=== PATIENT | male | born 1980 | race Caucasian/White ===

== ENCOUNTER 2021-10-19 07:05 | Inpatient (IN) | payer MEDICAID ==
[2021-10-19] VITALS (18 sets, daily range): BP systolic 90–190; BP diastolic 47–102
[~2021-10-19] VITALS: Ht 182.9 cm; Wt 88.3 kg
[~2021-10-19 07:05] MED LIST: INSU100V36 SQ; NPH,100V SQ
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
[2021-10-19] MEDS ORDERED: levetiracetam inj 1,000 MG in normal saline 100ml IV soln 90 ML IV ONE ×2 (07:20→07:30)
[2021-10-19] MEDS ORDERED: normal saline 1000ml 1,000 ML IV ONE ×2 (07:20→14:00)
[2021-10-19] MEDS ORDERED: LORazepam 2 mg/ml vial IV ONE ×3 (07:25→09:05)
[2021-10-19] MEDS ORDERED: Levetiracetam-NS 500mg/100ml 100 ML IV ONE ×5 (07:35→09:15)
[2021-10-19] MEDS ORDERED: LEVETIRACETAM NS 500 MG/100 ML IV ONE ×4 (07:40→09:15)
[2021-10-19 08:28] LABS: BASOPHILS # (AUTO) 0.1 X10'3 (0-0.2); BASOPHILS % (AUTO) 0.4 % (0-1); EOSINOPHILS % (AUTO) 0 % (0-6); HEMATOCRIT 45.2 % (42.0-52.0); HEMOGLOBIN 14.2 g/dl (14.0-17.9); LYMPHOCYTES # (AUTO) 0.6 X10'3 (1.1-4.8); LYMPHOCYTES % (AUTO) 3.5 % (21-51); MEAN CORPUSCULAR HEMOGLOBIN 27.9 PG (27.0-31.0); MEAN CORPUSCULAR HGB CONC 31.4 g/dL (33.0-36.5); MEAN PLATELET VOLUME 9.1 FL (7.4-10.4); MONOCYTES # (AUTO) 0.6 X10'3 (0-0.9); MONOCYTES % (AUTO) 3.2 % (2-12); NEUTROPHILS # (AUTO) 16.7 X10'3 (1.8-7.7); NEUTROPHILS % (AUTO) 92.9 % (42-75); PLATELET COUNT 369 X10'3 (140-440); RED BLOOD COUNT 5.08 X10'6 (4.70-6.10); RED CELL DISTRIBUTION WIDTH 14.4 % (11.5-14.5)
[2021-10-19 08:45] LABS: ALANINE AMINOTRANSFERASE 29 U/L (12-78); ALBUMIN 2.4 G/DL (3.4-5.0); ALBUMIN/GLOBULIN RATIO 0.6 (1.1-1.5); ALKALINE PHOSPHATASE 140 IU/L (46-116); ANION GAP 16 (8-16); ASPARTATE AMINO TRANSFERASE 21 U/L (10-37); BILIRUBIN,TOTAL 0.3 MG/DL (0.1-1.0); BLOOD UREA NITROGEN 42 MG/DL (7-18); BUN/CREATININE RATIO 14.3 (5.4-32.0); CALCIUM 8.7 MG/DL (8.5-10.1); CHLORIDE 97 MMOL/L (99-107); CREATININE 2.94 MG/DL (0.60-1.10); POTASSIUM 4.6 MMOL/L (3.5-5.1); SODIUM 132 MMOL/L (135-145); TOTAL CARBON DIOXIDE 19.4 MMOL/L (24-32); TOTAL PROTEIN 6.4 G/DL (6.4-8.2); eGFR 24 ML/MIN
[2021-10-19 08:50] LABS: CREATINE KINASE 370 U/L (39-308); ETHANOL < 0.010 GM/DL (0.0-0.010); MAGNESIUM 2.9 MG/DL (1.5-2.4)
[2021-10-19] MEDS ORDERED: LORazepam 2 mg/ml vial ONE (08:55)
[2021-10-19 09:03] LABS: GLUCOSE 1028 MG/DL (70-104)
[2021-10-19] MEDS ORDERED: LIDOcaine 2% 10ml TOPICAL JELLY (Urojet) TP ONE (09:25)
[2021-10-19] MEDS ORDERED: rocuronium 10mg/ml inj IV ONE ×2 (09:25→12:00)
[2021-10-19 09:30] LABS: CLARITY,URINE CLEAR (Clear); GLUCOSE, URINE >=1000 mg/dl (Neg); KETONES,URINE TRACE mg/dl (Neg); LEUKOCYTE ESTERASE ,URINE NEGATIVE (Neg); NITRITES, URINE NEGATIVE (Neg); OCCULT BLOOD,URINE SMALL (Neg); PH,URINE 5.5 (4.8-8.0); PROTEIN,URINE 100 mg/dl (Neg); URINE AMPHETAMINE SCREEN POSITIVE (Neg); URINE BARBITUATE SCREEN NEGATIVE (Neg); URINE BENZODIAZEPINES SCREEN NEGATIVE (Neg); URINE CANNABINOID SCREEN NEGATIVE (Neg); URINE COCAINE SCREEN NEGATIVE (Neg); URINE METHADONE SCREEN NEGATIVE (Neg); URINE OPIATE SCREEN NEGATIVE (Neg); URINE PHENCYCLIDINE SCREEN NEGATIVE (Neg); UROBILINOGEN,URINE 0.2 E.U/dL (0.2-1.0)
[2021-10-19] MEDS ORDERED: acetaminophen 325mg tablet PO PRN (09:30)
[2021-10-19] MEDS ORDERED: MIDAZolam inj 50 MG in normal saline 50ml IV soln 40 ML IV SCH (09:30)
[2021-10-19] MEDS ORDERED: insulin regular, human U-100 3ml vial - multi-dose IV PRN (09:30)
[2021-10-19] MEDS ORDERED: sodium bicarbonate (8.4%) inj. 100 MEQ in dextrose 5% water 500ml 500 ML IV PRN (09:30)
[2021-10-19] MEDS ORDERED: magnesium hydroxide 30ml (MOM) UD suspension PO PRN (09:30)
[2021-10-19] MEDS ORDERED: potassium CL 20mEq in D5-1/2NS 1,000 ML IV PRN (09:30)
[2021-10-19] MEDS ORDERED: sodium bicarbonate (8.4%) inj. 50 MEQ in dextrose 5% water 500ml 250 ML IV PRN (09:30)
[2021-10-19] MEDS ORDERED: normal saline 1000ml 1,000 ML IV SCH (09:30)
[2021-10-19] MEDS ORDERED: Neutra Phos packet PO PRN (09:30)
[2021-10-19] MEDS ORDERED: Insulin Reg/NS 100units/100mL 100 ML IV SCH ×2 (09:30)
[2021-10-19] MEDS: normal saline 1000ml 1,000 ML IV SCH ×4 (09:30→19:30)
[2021-10-19] MEDS ORDERED: sodium phosphate inj. 15 MMOL in dextrose 5%-water 250 ML IV PRN (09:30)
[2021-10-19] MEDS ORDERED: morphine 4 MG/ML inj SYRINge IV PRN (09:30)
[2021-10-19] MEDS ORDERED: POTASSIUM BICARB 20meq eff tab 20 MEQ TABLET.EFF PO PRN ×2 (09:30)
[2021-10-19] MEDS ORDERED: sodium phosphate inj. 30 MMOL in dextrose 5%-water 250 ML IV PRN (09:30)
[2021-10-19] MEDS ORDERED: potassium Cl 40MEQ/1/2NS 520ml 520 ML IV PRN ×2 (09:30)
[2021-10-19] MEDS ORDERED: potassium Cl 20 mEq SR tablet PO PRN ×2 (09:30)
[2021-10-19] MEDS ORDERED: morphine 2 MG/ML inj. syringe IV PRN (09:30)
[2021-10-19 09:33] LABS: COLOR,URINE STRAW (Yellow); UA COLLECTION TYPE NON-SPECIFIED
[2021-10-19 09:39] LABS: BACTERIA,URINE NONE SEEN /HPF (Neg); MUCUS STRANDS NONE SEEN /LPF (Neg); RBC,URINE 0-2 /HPF (0-2); SQUAMOUS EPITHELIAL CELL,UR FEW /LPF (FEW); WBC,URINE 0-4 /HPF (0-4)
[2021-10-19 09:40] LABS: SPERM FEW /HPF (NEGATIVE)
[2021-10-19] MEDS ORDERED: sodium bicarbonate (8.4%) inj. 50 MEQ in dextrose 5% water 500ml 1,000 ML IV PRN ×2 (09:53→09:55)
[2021-10-19] MEDS ORDERED: SODIUM BICARBONATE IV PRN (09:54)
[2021-10-19] MEDS ORDERED: DEXTROSE 5% IV PRN (09:54)
[2021-10-19] MEDS ORDERED: WATER IV PRN (09:54)
[2021-10-19] MEDS ORDERED: midazolam 100mg in NS 100ml 50 ML IV SCH (10:07)
[2021-10-19 10:14] LABS: ABG HCO3 21.8 mmol/L (22.0-26.0); ABG OXYGEN SATURATION 96.5 % (94-97); ABG PCO2 (T) 56.8 mmHg (35.0-48.0); ABG PO2 (T) 95.1 mmHg (75.0-100.0); ALLEN'S TEST POSITIVE; FCOHb 0.8 % (0.0-3.9); FMetHb 0.2 % (0.0-1.5); FO2Hb 95.5 % (94-97); PEEP 5 cm H2O; RESPIRATORY RATE 14 b/min; TIDAL VOLUME 500 mL; TOTAL HEMOGLOBIN 15.4 G/dl (14.0-18.0)
[2021-10-19 10:37] LABS: ALBUMIN 2.5 G/DL (3.4-5.0); ANION GAP 13 (8-16); BLOOD UREA NITROGEN 44 MG/DL (7-18); BUN/CREATININE RATIO 16.5 (5.4-32.0); CALCIUM 8.8 MG/DL (8.5-10.1); CHLORIDE 98 MMOL/L (99-107); CREATININE 2.66 MG/DL (0.60-1.10); POTASSIUM 5.5 MMOL/L (3.5-5.1); SODIUM 132 MMOL/L (135-145); eGFR 27 ML/MIN
[2021-10-19 10:53] LABS: GLUCOSE 889 MG/DL (70-104)
--- NOTE | 2021-10-19 10:53 | NUR ---
Pts aunt Janene Andreas called and left emergency contact #:
--- NOTE | 2021-10-19 11:05 | NUR ---
RECEIVED VO TO GIVE 50MG ROCURONIUM IV X [address] HEATH WHOM IS AT BEDSIDE ESTABLISHING CENTRAL LINE. 50MG GIVEN.
--- NOTE | 2021-10-19 11:25 | NUR ---
C-XRAY REVIEWED BY DR. HEATH AND CONFIRMED CENTRAL LINE PLACEMENT.
--- NOTE | 2021-10-19 11:57 | NUR ---
Report given to VENKAT Grant, pt to go to room 2013 when Covid result gets back. If result + pt will be reassigned different room.
[2021-10-19] MEDS ORDERED: LANTUS SQ (12:05)
[2021-10-19] MEDS ORDERED: BLOO-1084 (12:05)
[2021-10-19] MEDS ORDERED: AMLO10TA13 PO (12:05)
[2021-10-19] MEDS ORDERED: FOLI1TAB27 PO (12:05)
[2021-10-19] MEDS ORDERED: LANC-509 (12:05)
[2021-10-19] MEDS ORDERED: NEED-136 (12:05)
[2021-10-19 13:28] LABS: ALBUMIN 2.1 G/DL (3.4-5.0); ANION GAP 9 (8-16); BLOOD UREA NITROGEN 44 MG/DL (7-18); BUN/CREATININE RATIO 17.1 (5.4-32.0); CALCIUM 8.1 MG/DL (8.5-10.1); CHLORIDE 106 MMOL/L (99-107); CREATININE 2.57 MG/DL (0.60-1.10); POTASSIUM 4.2 MMOL/L (3.5-5.1); SODIUM 138 MMOL/L (135-145); TOTAL CARBON DIOXIDE 23.1 MMOL/L (24-32); eGFR 28 ML/MIN
[2021-10-19 13:29] LABS: GLUCOSE 649 MG/DL (70-104)
--- NOTE | 2021-10-19 14:00 | NUR ---
Pt. to 2013 from ED via [facility] after receiving report from Poppy ROBLEDO. BMP sent to lab STAT upon arrival. RN called Dr. Flores with glucose and IV fluid status. RN asked what Dr. Rutherford wanted in regards to increasing Insulin gtt rate, IV fluids etc. Order received to give 1L NS bolus and obtain glucose level after that and to keep Insulin rate at 3units per hour for now. Pt's aunt (by marriage) Janene, was at bedside to provide background info. re. pt. to RN. 2 RN skin check and MRSA swab done. Admission charting complete. CVL tranduced. VSS.
[2021-10-19] MEDS: midazolam 100mg in NS 100ml 100 ML IV SCH ×2 (14:12→17:05)
[2021-10-19] MEDS: K and/or MAG REPLACEMENT MC SCH (19:21)
[2021-10-19] MEDS: acetaminophen 325mg tablet PO PRN (19:53)
[2021-10-19] MEDS ORDERED: LEVETIRACETAM NS 500 MG/100 ML IV SCH (20:00)
[2021-10-19 20:41] LABS: BASOPHILS # (AUTO) 0.1 X10'3 (0-0.2); BASOPHILS % (AUTO) 0.7 % (0-1); EOSINOPHILS % (AUTO) 0 % (0-6); HEMATOCRIT 38.2 % (42.0-52.0); HEMOGLOBIN 12.8 g/dl (14.0-17.9); LYMPHOCYTES # (AUTO) 1.6 X10'3 (1.1-4.8); LYMPHOCYTES % (AUTO) 8.7 % (21-51); MEAN CORPUSCULAR HEMOGLOBIN 28.3 PG (27.0-31.0); MEAN CORPUSCULAR HGB CONC 33.5 g/dL (33.0-36.5); MEAN CORPUSCULAR VOLUME 84.4 FL (78-98); MEAN PLATELET VOLUME 8.4 FL (7.4-10.4); MONOCYTES # (AUTO) 1.2 X10'3 (0-0.9); MONOCYTES % (AUTO) 6.7 % (2-12); NEUTROPHILS # (AUTO) 14.9 X10'3 (1.8-7.7); NEUTROPHILS % (AUTO) 83.9 % (42-75); PLATELET COUNT 342 X10'3 (140-440); RED BLOOD COUNT 4.53 X10'6 (4.70-6.10); RED CELL DISTRIBUTION WIDTH 14.2 % (11.5-14.5); WHITE BLOOD COUNT 17.7 X10'3 (4.5-11.0)
[2021-10-19 20:59] LABS: ALANINE AMINOTRANSFERASE 24 U/L (12-78); ALBUMIN 1.9 G/DL (3.4-5.0); ALBUMIN/GLOBULIN RATIO 0.6 (1.1-1.5); ALKALINE PHOSPHATASE 103 IU/L (46-116); ANION GAP 9 (8-16); ASPARTATE AMINO TRANSFERASE 14 U/L (10-37); BILIRUBIN,TOTAL 0.3 MG/DL (0.1-1.0); BLOOD UREA NITROGEN 47 MG/DL (7-18); BUN/CREATININE RATIO 16.8 (5.4-32.0); CALCIUM 8.2 MG/DL (8.5-10.1); CHLORIDE 115 MMOL/L (99-107); CREATININE 2.79 MG/DL (0.60-1.10); GLUCOSE 101 MG/DL (70-104); MAGNESIUM 2.7 MG/DL (1.5-2.4); PHOSPHORUS 3.9 MG/DL (2.3-4.5); POTASSIUM 3.6 MMOL/L (3.5-5.1); SODIUM 148 MMOL/L (135-145); TOTAL CARBON DIOXIDE 24.1 MMOL/L (24-32); TOTAL PROTEIN 5.3 G/DL (6.4-8.2); eGFR 25 ML/MIN
[2021-10-19] MEDS ORDERED: ringers solution, lacted 1,000 ML IV SCH (21:20)
[2021-10-20] VITALS (34 sets, daily range): BP systolic 80–182; BP diastolic 44–102
[2021-10-20 03:24] LABS: ABG BASE EXCESS -3.3 mmol/L (-2.0-2.0); ABG HCO3 21.3 mmol/L (22.0-26.0); ABG OXYGEN SATURATION 96.2 % (94-97); ABG PCO2 (T) 37.7 mmHg (35.0-48.0); ALLEN'S TEST Modified; FCOHb 0.3 % (0.0-3.9); FMetHb 0.1 % (0.0-1.5); FO2Hb 95.8 % (94-97); PATIENT TEMPERATURE 37.4; PEEP 5 cm H2O; RESPIRATORY RATE 18 b/min; TIDAL VOLUME 500 mL; TOTAL HEMOGLOBIN 13.6 G/dl (14.0-18.0)
[2021-10-20 03:27] LABS: ALBUMIN 1.9 G/DL (3.4-5.0); ANION GAP 13 (8-16); BLOOD UREA NITROGEN 48 MG/DL (7-18); BUN/CREATININE RATIO 15.9 (5.4-32.0); CALCIUM 8.5 MG/DL (8.5-10.1); CHLORIDE 111 MMOL/L (99-107); CREATININE 3.01 MG/DL (0.60-1.10); GLUCOSE 100 MG/DL (70-104); MAGNESIUM 2.6 MG/DL (1.5-2.4); PHOSPHORUS 3.9 MG/DL (2.3-4.5); POTASSIUM 3.4 MMOL/L (3.5-5.1); SODIUM 145 MMOL/L (135-145); TOTAL CARBON DIOXIDE 21.4 MMOL/L (24-32); eGFR 23 ML/MIN
[2021-10-20 03:34] LABS: BASOPHILS # (AUTO) 0.1 X10'3 (0-0.2); BASOPHILS % (AUTO) 0.6 % (0-1); EOSINOPHILS % (AUTO) 0 % (0-6); HEMATOCRIT 38.9 % (42.0-52.0); HEMOGLOBIN 12.9 g/dl (14.0-17.9); LYMPHOCYTES # (AUTO) 1.4 X10'3 (1.1-4.8); MEAN CORPUSCULAR HEMOGLOBIN 27.9 PG (27.0-31.0); MEAN CORPUSCULAR HGB CONC 33.3 g/dL (33.0-36.5); MEAN CORPUSCULAR VOLUME 83.8 FL (78-98); MEAN PLATELET VOLUME 9.4 FL (7.4-10.4); MONOCYTES # (AUTO) 1.4 X10'3 (0-0.9); MONOCYTES % (AUTO) 7.4 % (2-12); NEUTROPHILS # (AUTO) 16.5 X10'3 (1.8-7.7); PLATELET COUNT 309 X10'3 (140-440); RED BLOOD COUNT 4.64 X10'6 (4.70-6.10); RED CELL DISTRIBUTION WIDTH 14.6 % (11.5-14.5); WHITE BLOOD COUNT 19.4 X10'3 (4.5-11.0)
[2021-10-20] MEDS: midazolam 100mg in NS 100ml 100 ML IV SCH ×2 (04:38→20:01)
--- NOTE | 2021-10-20 04:40 | NUR ---
RN Note -MD Communication Dr. Alcantara rounded on pt via tele P[employer]ur. Orders received.
[2021-10-20] MEDS ORDERED: dexmedetomidin/NS 400mcg/100ml 100 ML IV PRN (04:55)
[2021-10-20] MEDS ORDERED: dextrose 50%-water 50ml dispensing syringe IV PRN ×2 (04:55)
[2021-10-20] MEDS ORDERED: MESSAGE TO PHARMACY PO ONE (04:55)
[2021-10-20] MEDS ORDERED: glucagon, human recombinant 1mg kit SUBCUT PRN (04:55)
[2021-10-20] MEDS ORDERED: insulin Lispro (HumaLOG) vial - multi-dose SQ SCH (04:55)
[2021-10-20] MEDS ORDERED: DEXTROSE 15 GM of carb/4 tabs (each vial/BOTTLE has 4 tablets) PO PRN ×2 (04:55)
[2021-10-20] MEDS ORDERED: potassium Cl 10 mEq/100mL bag IV ONE (05:00)
[2021-10-20] MEDS ORDERED: potassium Cl 20mEq/100mL bag 100 ML IV ONE (05:00)
[2021-10-20] MEDS: propofol 1000mg/100ml bottle 100 ML IV SCH (05:54)
[2021-10-20] MEDS: dexmedetomidin/NS 400mcg/100ml 100 ML IV PRN ×2 (05:56→14:55)
[2021-10-20] MEDS: folic acid 1mg tablet PO SCH (07:33)
[2021-10-20] MEDS: amLODIPine 5mg tablet PO SCH (08:00)
[2021-10-20] MEDS: K and/or MAG REPLACEMENT MC SCH ×2 (08:00→20:00)
[2021-10-20] MEDS ORDERED: K and/or MAG REPLACEMENT MC SCH (08:00)
[2021-10-20] MEDS: insulin glargine (Lantus) pen - multi-dose SQ SCH ×2 (08:40→20:08)
[2021-10-20] MEDS ORDERED: normal saline 1000ml 1,000 ML IV ONE (08:45)
[2021-10-20] MEDS: levetiracetam-NS 1000mg/100ml 100 ML IV SCH ×2 (09:40→20:00)
[2021-10-20] MEDS: insulin regular, human U-100 3ml vial - multi-dose SQ SCH ×2 (10:56→14:26)
--- NOTE | 2021-10-20 11:28 | NUR ---
Initial: Pt intubated admit DX status epilepticus, possible aspiration, and HHNK hx T1DM Glu 1028mg/dl on admit per cryptologist at rounds/EMR. Pt has humilin 35 units AM, Lantus 20 units BID, and humalog sliding scale home DM meds though living in car and positive for meth per critical care rounds. A1C pending this admit. Pt off insulin drip on glycemic protocol w/ Glu 222mg/dl this AM. MAP 77 w/ OG in place; TF recs below in case prolonged intubation. Propofol visualized at 9.992ml/hr during rounds though to be turned off for hopeful extubation today per cryptologist. Will monitor for further nutrition intervention needs this admit. Rec: 1. IF TF; Vital AF at 80ml/hr goal 2. IF TF; additional water flush 200ml Q4H 3. upon extubation; advance diet as medically indicated per STONE CHIMNEY MASON/MD recs to carb controlled 4. routine bowel care 5. daily wts 6. monitor for A1C results Addendum: 10/20/21 at [address] Amended: Links added.
[2021-10-20] MEDS: pantoprazole 40MG/NS 100ML BAG 100 ML IV SCH (11:53)
[2021-10-20] MEDS: piperacillin/tazobactam inj. 3.375 GM in NS 50ml IV SCH (12:36)
[2021-10-20] MEDS: acetaminophen 325mg tablet PO PRN (13:30)
[2021-10-20] MEDS: heparin, porcine 5000 units/ml vial SQ SCH ×2 (13:35→20:01)
--- NOTE | 2021-10-20 17:46 | NUR ---
Dr Cuevas updated with temp and vital signs, fluid bolus in progress, precedex off
--- NOTE | 2021-10-20 18:30 | NUR ---
Patient in room CICU 2013. I have received report from VENKAT Menard and had the opportunity to ask questions and assume patient care.
--- NOTE | 2021-10-20 18:35 | NUR ---
significant other and sampler and test preparer at bedside.
[2021-10-20] MEDS: normal saline 1000ml 1,000 ML IV SCH (20:13)
[2021-10-20] MEDS ORDERED: insulin glargine (Lantus) pen - multi-dose SQ SCH (21:00)
[2021-10-21] VITALS (34 sets, daily range): BP systolic 106–166; BP diastolic 62–94
[2021-10-21] MEDS: piperacillin/tazobactam inj. 3.375 GM in NS 50ml IV SCH ×3 (00:11→16:10)
[2021-10-21] MEDS: propofol 1000mg/100ml bottle 100 ML IV SCH ×4 (00:52→22:35)
[2021-10-21] MEDS: normal saline 1000ml 1,000 ML IV SCH ×2 (01:15→09:15)
[2021-10-21 02:25] LABS: BASOPHILS # (AUTO) 0.1 X10'3 (0-0.2); BASOPHILS % (AUTO) 0.8 % (0-1); EOSINOPHILS # (AUTO) 0.2 X10'3 (0-0.9); EOSINOPHILS % (AUTO) 1.1 % (0-6); HEMATOCRIT 39.4 % (42.0-52.0); HEMOGLOBIN 13.1 g/dl (14.0-17.9); LYMPHOCYTES # (AUTO) 1.7 X10'3 (1.1-4.8); LYMPHOCYTES % (AUTO) 11.8 % (21-51); MEAN CORPUSCULAR HEMOGLOBIN 28.7 PG (27.0-31.0); MEAN CORPUSCULAR HGB CONC 33.3 g/dL (33.0-36.5); MEAN PLATELET VOLUME 8.7 FL (7.4-10.4); MONOCYTES # (AUTO) 0.9 X10'3 (0-0.9); MONOCYTES % (AUTO) 6.3 % (2-12); NEUTROPHILS # (AUTO) 11.6 X10'3 (1.8-7.7); PLATELET COUNT 278 X10'3 (140-440); RED BLOOD COUNT 4.58 X10'6 (4.70-6.10); WHITE BLOOD COUNT 14.5 X10'3 (4.5-11.0)
[2021-10-21 02:35] LABS: APTT 31 SECONDS (22-32)
[2021-10-21 02:39] LABS: ALBUMIN 1.7 G/DL (3.4-5.0); ANION GAP 7 (8-16); BLOOD UREA NITROGEN 47 MG/DL (7-18); BUN/CREATININE RATIO 16.6 (5.4-32.0); CALCIUM 8.4 MG/DL (8.5-10.1); CHLORIDE 114 MMOL/L (99-107); CREATININE 2.83 MG/DL (0.60-1.10); GLUCOSE 85 MG/DL (70-104); MAGNESIUM 2.1 MG/DL (1.5-2.4); PHOSPHORUS 3.7 MG/DL (2.3-4.5); POTASSIUM 3.5 MMOL/L (3.5-5.1); SODIUM 144 MMOL/L (135-145); TOTAL CARBON DIOXIDE 22.9 MMOL/L (24-32); TRIGLYCERIDES 98 MG/DL (20-135); eGFR 25 ML/MIN
[2021-10-21 03:41] LABS: ABG BASE EXCESS -3.6 mmol/L (-2.0-2.0); ABG HCO3 19.9 mmol/L (22.0-26.0); ABG OXYGEN SATURATION 97.4 % (94-97); ABG PCO2 (T) 32.5 mmHg (35.0-48.0); ABG PO2 (T) 96.9 mmHg (75.0-100.0); ALLEN'S TEST Modified; FCOHb 0.2 % (0.0-3.9); FMetHb 0.2 % (0.0-1.5); PATIENT TEMPERATURE 37.5; PEEP 5 cm H2O; RESPIRATORY RATE 18 b/min; TIDAL VOLUME 500 mL; TOTAL HEMOGLOBIN 13.9 G/dl (14.0-18.0)
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
[2021-10-21] MEDS: midazolam 100mg in NS 100ml 100 ML IV SCH (06:01)
--- NOTE | 2021-10-21 06:20 | NUR ---
Problems reprioritized. Patient report given, questions answered & plan of care reviewed with VENKAT Grant.
[2021-10-21] MEDS: dextrose 5%-normal saline 1,000 ML IV SCH ×3 (06:59→19:53)
--- NOTE | 2021-10-21 07:05 | NUR ---
Patient in room [facility] 2013. I have received report from Silva ROBLEDO and had the opportunity to ask questions and assume patient care. Addendum: 10/21/21 at 0705 by Juanita Fowler RN Amended: Links added.
[2021-10-21] MEDS: pantoprazole 40MG/NS 100ML BAG 100 ML IV SCH (07:06)
[2021-10-21] MEDS: folic acid 1mg tablet PO SCH (07:08)
[2021-10-21] MEDS: amLODIPine 5mg tablet PO SCH (07:08)
[2021-10-21] MEDS: K and/or MAG REPLACEMENT MC SCH ×2 (07:08→19:12)
[2021-10-21] MEDS: heparin, porcine 5000 units/ml vial SQ SCH ×2 (07:09→19:27)
[2021-10-21] MEDS: dextrose 50%-water 50ml dispensing syringe IV PRN ×2 (07:35→13:33)
[2021-10-21] MEDS: levetiracetam inj 1,000 MG in normal saline 100ml IV soln 100 ML IV SCH ×2 (07:40→19:27)
[2021-10-21] MEDS: insulin glargine (Lantus) pen - multi-dose SQ SCH ×2 (07:48→19:32)
[2021-10-21] MEDS ORDERED: levetiracetam inj 1,000 MG in normal saline 100ml IV soln 90 ML IV SCH (08:00)
--- NOTE | 2021-10-21 10:06 | NUR ---
EEG being set up.
--- NOTE | 2021-10-21 10:21 | NUR ---
ROUNDS NOTE: Dr. Rutherford aware of BG of 67 this am and multiple Insulin orders. Clarified with pharmacy. Pt. to be extubated after EEG is complete per Dr. Rutherford.
[2021-10-21 10:52] LABS: HEMOGLOBIN A1C 11.1 % (4.5-6.2)
[2021-10-21] MEDS ORDERED: DEXTROSE 15 GM of carb/4 tabs (each vial/BOTTLE has 4 tablets) OGT PRN ×2 (10:57)
[2021-10-21] MEDS ORDERED: magnesium hydroxide 30ml (MOM) UD suspension OGT PRN (10:57)
[2021-10-21] MEDS ORDERED: Neutra Phos packet OGT PRN (10:58)
[2021-10-21] MEDS ORDERED: POTASSIUM BICARB 20meq eff tab 20 MEQ TABLET.EFF OGT PRN (10:58)
--- NOTE | 2021-10-21 13:53 | NUR ---
F/u 10/21: Noted pt A1C results 11.1% per EMR; pt would benefit from DM education once appropriate prior to discharge. Addendum: 10/21/21 at [address] Amended: Links added.
--- NOTE | 2021-10-21 18:13 | NUR ---
Problems reprioritized. Patient report given, questions answered & plan of care reviewed with Silva ROBLEDO.
--- NOTE | 2021-10-21 18:30 | NUR ---
Patient in room CICU 2013. I have received report from VENKAT Grant and had the opportunity to ask questions and assume patient care.
[2021-10-22] VITALS (34 sets, daily range): BP systolic 91–156; BP diastolic 49–89
[2021-10-22] MEDS: piperacillin/tazobactam inj. 3.375 GM in NS 50ml IV SCH ×3 (00:06→16:33)
[2021-10-22 02:29] LABS: BASOPHILS # (AUTO) 0.1 X10'3 (0-0.2); BASOPHILS % (AUTO) 0.7 % (0-1); EOSINOPHILS # (AUTO) 0.2 X10'3 (0-0.9); EOSINOPHILS % (AUTO) 1.9 % (0-6); HEMATOCRIT 38.2 % (42.0-52.0); HEMOGLOBIN 12.7 g/dl (14.0-17.9); LYMPHOCYTES # (AUTO) 1.1 X10'3 (1.1-4.8); MEAN CORPUSCULAR HEMOGLOBIN 28.7 PG (27.0-31.0); MEAN CORPUSCULAR HGB CONC 33.3 g/dL (33.0-36.5); MEAN CORPUSCULAR VOLUME 86.2 FL (78-98); MEAN PLATELET VOLUME 9.1 FL (7.4-10.4); MONOCYTES # (AUTO) 0.8 X10'3 (0-0.9); MONOCYTES % (AUTO) 6.3 % (2-12); NEUTROPHILS # (AUTO) 10.4 X10'3 (1.8-7.7); NEUTROPHILS % (AUTO) 82.1 % (42-75); PLATELET COUNT 285 X10'3 (140-440); RED BLOOD COUNT 4.43 X10'6 (4.70-6.10); WHITE BLOOD COUNT 12.7 X10'3 (4.5-11.0)
[2021-10-22 02:44] LABS: APTT 30 SECONDS (22-32)
[2021-10-22 02:45] LABS: ALBUMIN 1.5 G/DL (3.4-5.0); ANION GAP 10 (8-16); BLOOD UREA NITROGEN 33 MG/DL (7-18); BUN/CREATININE RATIO 14.7 (5.4-32.0); CALCIUM 8.1 MG/DL (8.5-10.1); CHLORIDE 116 MMOL/L (99-107); CREATININE 2.24 MG/DL (0.60-1.10); GLUCOSE 125 MG/DL (70-104); POTASSIUM 3.3 MMOL/L (3.5-5.1); SODIUM 148 MMOL/L (135-145); TOTAL CARBON DIOXIDE 22.4 MMOL/L (24-32); eGFR 33 ML/MIN
[2021-10-22 03:13] LABS: ABG BASE EXCESS -2.9 mmol/L (-2.0-2.0); ABG HCO3 20.9 mmol/L (22.0-26.0); ABG PCO2 (T) 35.5 mmHg (35.0-48.0); ABG PO2 (T) 117.1 mmHg (75.0-100.0); ALLEN'S TEST Modified; FCOHb 0.3 % (0.0-3.9); FMetHb 0.3 % (0.0-1.5); FO2Hb 97.4 % (94-97); PATIENT TEMPERATURE 38.1; PEEP 5 cm H2O; RESPIRATORY RATE 18 b/min; TIDAL VOLUME 500 mL; TOTAL HEMOGLOBIN 13.8 G/dl (14.0-18.0)
[2021-10-22] MEDS: acetaminophen 325mg/10.15ml oral unit dose solution OGT PRN ×2 (04:24→19:25)
[2021-10-22] MEDS: propofol 1000mg/100ml bottle 100 ML IV SCH ×4 (04:31→19:25)
[2021-10-22] MEDS ORDERED: potassium Cl 20mEq/100mL bag 100 ML IV ONE ×2 (04:55→06:00)
--- NOTE | 2021-10-22 06:35 | NUR ---
Problems reprioritized. Patient report given, questions answered & plan of care reviewed with VENKAT Menard.
--- NOTE | 2021-10-22 07:11 | NUR ---
Patient in room CICU 2013. I have received report from Silva ROBLEDO and had the opportunity to ask questions and assume patient care.
[2021-10-22] MEDS: levetiracetam inj 1,000 MG in normal saline 100ml IV soln 100 ML IV SCH ×2 (07:30→19:26)
[2021-10-22] MEDS: pantoprazole 40MG/NS 100ML BAG 100 ML IV SCH (07:30)
[2021-10-22] MEDS: folic acid 1mg tablet OGT SCH (07:31)
[2021-10-22] MEDS: heparin, porcine 5000 units/ml vial SQ SCH ×2 (07:32→19:26)
[2021-10-22] MEDS: insulin glargine (Lantus) pen - multi-dose SQ SCH ×2 (07:34→19:44)
[2021-10-22] MEDS: amLODIPine 5mg tablet OGT SCH (08:00)
[2021-10-22] MEDS: K and/or MAG REPLACEMENT MC SCH ×2 (08:00→20:00)
--- NOTE | 2021-10-22 10:40 | NUR ---
Paged PICC nurse to have pick line placed
--- NOTE | 2021-10-22 11:04 | NUR ---
Rounds reviewed labs, meds, and assessment findings. New orders for tube feed consult, picc line. Will also do ultra sound this afternoon to look at a possible pleural effusion of right lung
--- NOTE | 2021-10-22 11:41 | NUR ---
TF consult: Pt remains intubated and to begin TF per MD. Propofol visualized at bedside to be running at 10.82 mL/hr providing ~285 kcal/day. TF recommendations have been adjusted accordingly. [facility] 10/21. Will continue to follow closely. Recommendations: 1. Given Propofol at 10.82 mL/hr (285 kcal/day), continuous TF via OGT using Vital AF with 80 mL/hr goal rate. To provide 1920 mL total volume/day, 2304 kcal, 144 g protein, and 1557 mL water 2. Monitor Propofol rate and need to adjust TF recs 3. Additional 150 mL water flush Q4H; monitor serum Na 4. Prealbumin q Wednesday/ 5. Daily scaled weights 6. Routine bowel care 7. Advance diet as medically indicated per BLUEPRINT PROCESSOR/MD recs to carb controlled following extubation 8. DM education once appropriate following extubation; A1C 11.1% this admit Addendum: 10/22/21 at [address] Amended: Links added.
--- NOTE | 2021-10-22 12:30 | NUR ---
Paged PICC line nurse to have picc line placed
--- NOTE | 2021-10-22 12:40 | NUR ---
Picc nurse called back, stated she is headed to lunch then will place requested PICC line
[2021-10-22] MEDS: insulin regular, human U-100 3ml vial - multi-dose SQ SCH ×2 (14:31→19:43)
--- NOTE | 2021-10-22 18:10 | NUR ---
Problems reprioritized. Patient report given, questions answered & plan of care reviewed with Silva ROBLEDO.
--- NOTE | 2021-10-22 18:13 | NUR ---
Patient in room CICU 2013. I have received report from VENKAT Menard and had the opportunity to ask questions and assume patient care.
[2021-10-23] VITALS (34 sets, daily range): BP systolic 94–153; BP diastolic 50–92
[2021-10-23] MEDS: piperacillin/tazobactam inj. 3.375 GM in NS 50ml IV SCH ×4 (00:27→23:31)
[2021-10-23] MEDS: insulin regular, human U-100 3ml vial - multi-dose SQ SCH ×4 (02:26→21:46)
[2021-10-23] MEDS: propofol 1000mg/100ml bottle 100 ML IV SCH ×3 (02:28→14:18)
[2021-10-23 02:41] LABS: BASOPHILS # (AUTO) 0.1 X10'3 (0-0.2); BASOPHILS % (AUTO) 0.8 % (0-1); EOSINOPHILS # (AUTO) 0.2 X10'3 (0-0.9); EOSINOPHILS % (AUTO) 1.9 % (0-6); HEMATOCRIT 37.4 % (42.0-52.0); HEMOGLOBIN 12.4 g/dl (14.0-17.9); LYMPHOCYTES # (AUTO) 1.1 X10'3 (1.1-4.8); LYMPHOCYTES % (AUTO) 8.6 % (21-51); MEAN CORPUSCULAR HEMOGLOBIN 28.8 PG (27.0-31.0); MEAN CORPUSCULAR HGB CONC 33.3 g/dL (33.0-36.5); MEAN CORPUSCULAR VOLUME 86.6 FL (78-98); MEAN PLATELET VOLUME 8.9 FL (7.4-10.4); MONOCYTES # (AUTO) 0.9 X10'3 (0-0.9); MONOCYTES % (AUTO) 7.1 % (2-12); NEUTROPHILS % (AUTO) 81.6 % (42-75); PLATELET COUNT 278 X10'3 (140-440); RED BLOOD COUNT 4.32 X10'6 (4.70-6.10); RED CELL DISTRIBUTION WIDTH 15.3 % (11.5-14.5); WHITE BLOOD COUNT 12.2 X10'3 (4.5-11.0)
[2021-10-23 02:53] LABS: ALBUMIN 1.4 G/DL (3.4-5.0); ANION GAP 6 (8-16); APTT 29 SECONDS (22-32); BLOOD UREA NITROGEN 28 MG/DL (7-18); BUN/CREATININE RATIO 12.3 (5.4-32.0); CALCIUM 8.2 MG/DL (8.5-10.1); CHLORIDE 116 MMOL/L (99-107); CREATININE 2.28 MG/DL (0.60-1.10); GLUCOSE 134 MG/DL (70-104); MAGNESIUM 1.9 MG/DL (1.5-2.4); PHOSPHORUS 3.8 MG/DL (2.3-4.5); POTASSIUM 3.7 MMOL/L (3.5-5.1); PREALBUMIN 11.7 MG/DL (19-36); SODIUM 146 MMOL/L (135-145); TOTAL CARBON DIOXIDE 23.6 MMOL/L (24-32); eGFR 32 ML/MIN
[2021-10-23 03:35] LABS: ABG BASE EXCESS -2.4 mmol/L (-2.0-2.0); ABG HCO3 21.6 mmol/L (22.0-26.0); ABG OXYGEN SATURATION 95.1 % (94-97); ABG PCO2 (T) 36.9 mmHg (35.0-48.0); ABG PO2 (T) 77.1 mmHg (75.0-100.0); FCOHb 0.2 % (0.0-3.9); FMetHb 0.2 % (0.0-1.5); FO2Hb 94.7 % (94-97); PATIENT TEMPERATURE 38.3; PEEP 5 cm H2O; RESPIRATORY RATE 18 b/min; TIDAL VOLUME 500 mL; TOTAL HEMOGLOBIN 13.7 G/dl (14.0-18.0)
[2021-10-23] MEDS: acetaminophen 325mg/10.15ml oral unit dose solution OGT PRN ×3 (04:15→21:24)
--- NOTE | 2021-10-23 06:24 | NUR ---
Problems reprioritized. Patient report given, questions answered & plan of care reviewed with VENKAT Cramer.
[2021-10-23] MEDS: K and/or MAG REPLACEMENT MC SCH ×2 (08:00→20:00)
[2021-10-23] MEDS: pantoprazole 40MG/NS 100ML BAG 100 ML IV SCH (09:07)
[2021-10-23] MEDS: levetiracetam inj 1,000 MG in normal saline 100ml IV soln 100 ML IV SCH ×2 (09:07→21:25)
[2021-10-23] MEDS: folic acid 1mg tablet OGT SCH (09:08)
[2021-10-23] MEDS: amLODIPine 5mg tablet OGT SCH (09:08)
[2021-10-23] MEDS: insulin glargine (Lantus) pen - multi-dose SQ SCH ×2 (09:19→21:44)
[2021-10-23] MEDS: heparin, porcine 5000 units/ml vial SQ SCH ×2 (09:20→21:25)
[2021-10-23] MEDS ORDERED: furosemide 10 MG/1 ML 10ml inj IV ONE (11:50)
[2021-10-23] MEDS: dexmedetomidine inj. 400 MCG in normal saline 100ml IV soln 96 ML IV SCH ×2 (12:24→18:50)
[2021-10-23 18:17] LABS: CLARITY,URINE CLOUDY (Clear); COLOR,URINE YELLOW (Yellow); GLUCOSE, URINE NEGATIVE (Neg); KETONES,URINE NEGATIVE (Neg); LEUKOCYTE ESTERASE ,URINE NEGATIVE (Neg); NITRITES, URINE NEGATIVE (Neg); OCCULT BLOOD,URINE MODERATE (Neg); PH,URINE 5.5 (4.8-8.0); PROTEIN,URINE 100 mg/dl (Neg); UROBILINOGEN,URINE 0.2 E.U/dL (0.2-1.0)
[2021-10-23 18:25] LABS: UA COLLECTION TYPE FOLEY CATH
[2021-10-23 18:27] LABS: RBC,URINE 20-50 /HPF (0-2); URIC ACID CRYSTALS 4+ /HPF (NEGATIVE)
[2021-10-23 18:28] LABS: BACTERIA,URINE 1+ /HPF (Neg); COARSE GRANULAR CAST 0-3 /LPF (NEGATIVE); FINE GRANULAR CAST 0-3 /LPF (NEGATIVE); SQUAMOUS EPITHELIAL CELL,UR FEW /LPF (FEW)
[2021-10-23 18:29] LABS: WBC,URINE 0-4 /HPF (0-4)
[2021-10-23] MEDS ORDERED: traZODone 50mg tablet PO SCH (21:00)
[2021-10-24] VITALS (29 sets, daily range): BP systolic 105–167; BP diastolic 56–88
--- NOTE | 2021-10-24 | NUR ---
CHG wipes bath given, wood care and chad care provided. Complete linen change. Pt turned to right lateral side.
[2021-10-24] MEDS: dexmedetomidine inj. 400 MCG in normal saline 100ml IV soln 96 ML IV SCH ×2 (00:36→13:45)
[2021-10-24] MEDS: insulin regular, human U-100 3ml vial - multi-dose SQ SCH ×2 (02:22→07:37)
[2021-10-24 03:12] LABS: HEMOGLOBIN 11.9 g/dl (14.0-17.9); RED CELL DISTRIBUTION WIDTH 15.2 % (11.5-14.5)
[2021-10-24 03:15] LABS: BASOPHILS % (AUTO) 0.4 % (0-1); EOSINOPHILS % (AUTO) 0 % (0-6); HEMATOCRIT 36.2 % (42.0-52.0); LYMPHOCYTES # (AUTO) 0.6 X10'3 (1.1-4.8); LYMPHOCYTES % (AUTO) 5.3 % (21-51); MEAN CORPUSCULAR HEMOGLOBIN 28.5 PG (27.0-31.0); MEAN CORPUSCULAR HGB CONC 32.7 g/dL (33.0-36.5); MEAN CORPUSCULAR VOLUME 87.2 FL (78-98); MEAN PLATELET VOLUME 9.9 FL (7.4-10.4); MONOCYTES # (AUTO) 0.4 X10'3 (0-0.9); MONOCYTES % (AUTO) 3.1 % (2-12); NEUTROPHILS # (AUTO) 10.7 X10'3 (1.8-7.7); NEUTROPHILS % (AUTO) 91.2 % (42-75); PLATELET COUNT 270 X10'3 (140-440); RED BLOOD COUNT 4.16 X10'6 (4.70-6.10); WHITE BLOOD COUNT 11.8 X10'3 (4.5-11.0)
[2021-10-24 03:21] LABS: APTT 30 SECONDS (22-32)
[2021-10-24 03:23] LABS: ALBUMIN 1.3 G/DL (3.4-5.0); ANION GAP 12 (8-16); BLOOD UREA NITROGEN 37 MG/DL (7-18); BUN/CREATININE RATIO 13.8 (5.4-32.0); CALCIUM 8.8 MG/DL (8.5-10.1); CHLORIDE 113 MMOL/L (99-107); CREATININE 2.68 MG/DL (0.60-1.10); GLUCOSE 297 MG/DL (70-104); MAGNESIUM 2.3 MG/DL (1.5-2.4); PHOSPHORUS 5.3 MG/DL (2.3-4.5); SODIUM 146 MMOL/L (135-145); TOTAL CARBON DIOXIDE 21.3 MMOL/L (24-32); eGFR 27 ML/MIN
[2021-10-24 03:26] LABS: ABG BASE EXCESS -3.2 mmol/L (-2.0-2.0); ABG HCO3 20.3 mmol/L (22.0-26.0); ABG OXYGEN SATURATION 96.6 % (94-97); ABG PCO2 (T) 32.2 mmHg (35.0-48.0); ABG PO2 (T) 82.5 mmHg (75.0-100.0); FCOHb 0.1 % (0.0-3.9); FMetHb 0.1 % (0.0-1.5); FO2Hb 96.4 % (94-97); PATIENT TEMPERATURE 37.2; PEEP 5 cm H2O; RESPIRATORY RATE 18 b/min; TIDAL VOLUME 500 mL
[2021-10-24] MEDS: propofol 1000mg/100ml bottle 100 ML IV SCH (05:41)
[2021-10-24] MEDS: folic acid 1mg tablet OGT SCH (07:30)
[2021-10-24] MEDS: pantoprazole 40MG/NS 100ML BAG 100 ML IV SCH (07:32)
[2021-10-24] MEDS: piperacillin/tazobactam inj. 3.375 GM in NS 50ml IV SCH ×2 (07:33→15:39)
[2021-10-24] MEDS: levetiracetam inj 1,000 MG in normal saline 100ml IV soln 100 ML IV SCH ×2 (07:33→20:35)
[2021-10-24] MEDS: heparin, porcine 5000 units/ml vial SQ SCH ×2 (07:34→20:34)
[2021-10-24] MEDS: amLODIPine 5mg tablet OGT SCH (07:34)
[2021-10-24] MEDS: insulin glargine (Lantus) pen - multi-dose SQ SCH ×2 (07:37→20:00)
[2021-10-24] MEDS: K and/or MAG REPLACEMENT MC SCH ×2 (08:00→20:00)
[2021-10-24] MEDS ORDERED: traZODone 50mg tablet PO SCH (13:47)
[2021-10-24] MEDS ORDERED: OLANZapine **IM** 10 mg inj. IM ONE (15:05)
[2021-10-24] MEDS ORDERED: haloperidol lactate 5mg/ml inj IM PRN (17:15)
--- NOTE | 2021-10-24 18:10 | NUR ---
Problems reprioritized. Patient report given, questions answered & plan of care reviewed with Mikey ROBLEDO.
[2021-10-25] VITALS (22 sets, daily range): BP systolic 110–172; BP diastolic 62–100
[2021-10-25] MEDS: piperacillin/tazobactam inj. 3.375 GM in NS 50ml IV SCH ×3 (00:16→15:28)
[2021-10-25] MEDS: ondansetron/PF 4mg/2ml inj IV PRN (00:48)
[2021-10-25] MEDS: insulin Lispro (HumaLOG) vial - multi-dose SQ SCH ×3 (02:37→16:32)
[2021-10-25] MEDS: dexmedetomidine inj. 400 MCG in normal saline 100ml IV soln 96 ML IV SCH ×3 (02:39→22:38)
[2021-10-25 03:01] LABS: BASOPHILS # (AUTO) 0.1 X10'3 (0-0.2); EOSINOPHILS # (AUTO) 0.1 X10'3 (0-0.9); EOSINOPHILS % (AUTO) 0.9 % (0-6); HEMATOCRIT 40.3 % (42.0-52.0); LYMPHOCYTES # (AUTO) 1.5 X10'3 (1.1-4.8); LYMPHOCYTES % (AUTO) 11.4 % (21-51); MEAN CORPUSCULAR HEMOGLOBIN 28.5 PG (27.0-31.0); MEAN CORPUSCULAR HGB CONC 32.4 g/dL (33.0-36.5); MEAN PLATELET VOLUME 9.5 FL (7.4-10.4); MONOCYTES # (AUTO) 0.9 X10'3 (0-0.9); NEUTROPHILS # (AUTO) 10.5 X10'3 (1.8-7.7); NEUTROPHILS % (AUTO) 79.7 % (42-75); PLATELET COUNT 357 X10'3 (140-440); RED BLOOD COUNT 4.58 X10'6 (4.70-6.10); RED CELL DISTRIBUTION WIDTH 15.4 % (11.5-14.5); WHITE BLOOD COUNT 13.2 X10'3 (4.5-11.0)
[2021-10-25 03:25] LABS: ALBUMIN 1.5 G/DL (3.4-5.0); ANION GAP 14 (8-16); BLOOD UREA NITROGEN 44 MG/DL (7-18); BUN/CREATININE RATIO 17.1 (5.4-32.0); CALCIUM 8.6 MG/DL (8.5-10.1); CHLORIDE 113 MMOL/L (99-107); CREATININE 2.57 MG/DL (0.60-1.10); GLUCOSE 319 MG/DL (70-104); MAGNESIUM 2.2 MG/DL (1.5-2.4); PHOSPHORUS 3.7 MG/DL (2.3-4.5); POTASSIUM 3.9 MMOL/L (3.5-5.1); SODIUM 146 MMOL/L (135-145); TOTAL CARBON DIOXIDE 19.5 MMOL/L (24-32); eGFR 28 ML/MIN
[2021-10-25 03:26] LABS: APTT 27 SECONDS (22-32)
[2021-10-25] MEDS ORDERED: dicyclomine 10 MG capsule PO PRN (05:05)
[2021-10-25] MEDS: insulin glargine (Lantus) pen - multi-dose SQ SCH ×2 (07:02→20:15)
--- NOTE | 2021-10-25 07:24 | NUR ---
Reassessment: Pt has been extubated on 10/24, OGT removed and pt now NPO pending BSS. Recommend advancing to Carb control diet w/ texture per EARLY CHILDHOOD COORDINATOR once appropriate. LBM 10/23, recommend addition of routine bowel care if MD agreeable. Limited nutrition interventions at this time, will continue to monitor. Recommendations: 1. Advance diet as medically indicated to Carb control diet w/ texture per EARLY CHILDHOOD COORDINATOR 2. Monitor need for ONS pending diet advancement 3. Daily scaled weights 4. Routine bowel care 5. DM education once appropriate; A1C 11.1% this admit Addendum: 10/25/21 at [address] Amended: Links added.
[2021-10-25] MEDS: pantoprazole 40MG/NS 100ML BAG 100 ML IV SCH (08:00)
[2021-10-25] MEDS: heparin, porcine 5000 units/ml vial SQ SCH ×2 (08:00→19:58)
[2021-10-25] MEDS: levetiracetam inj 750 MG in normal saline 100ml IV soln 100 ML IV SCH ×2 (08:00→19:58)
[2021-10-25] MEDS: olanzapine 10mg tablet PO SCH (09:07)
[2021-10-25] MEDS: folic acid 1mg tablet OGT SCH (09:08)
[2021-10-25] MEDS: amLODIPine 5mg tablet OGT SCH (09:08)
[2021-10-25] MEDS ORDERED: insulin glargine (Lantus) pen - multi-dose SQ SCH (09:09)
[2021-10-25] MEDS: venlafaxine XR 75mg capsule (Q24H) PO SCH (12:32)
[2021-10-25 13:08] LABS: C DIFF SPECIMEN=DIARRHEA? ACCEPTABLE
[2021-10-25 13:12] LABS: C DIFFICILE TOXINS A&B NEGATIVE (Neg)
[2021-10-25] MEDS ORDERED: LORazepam 2 mg/ml vial IV PRN (14:25)
[2021-10-25] MEDS: K and/or MAG REPLACEMENT MC SCH (20:00)
[2021-10-26] VITALS (23 sets, daily range): BP systolic 125–168; BP diastolic 58–94
[2021-10-26] MEDS: piperacillin/tazobactam inj. 3.375 GM in NS 50ml IV SCH ×3 (00:29→16:14)
[2021-10-26 02:53] LABS: BASOPHILS # (AUTO) 0.1 X10'3 (0-0.2); BASOPHILS % (AUTO) 0.9 % (0-1); EOSINOPHILS # (AUTO) 0.3 X10'3 (0-0.9); EOSINOPHILS % (AUTO) 4.3 % (0-6); HEMATOCRIT 37.6 % (42.0-52.0); HEMOGLOBIN 12.4 g/dl (14.0-17.9); LYMPHOCYTES # (AUTO) 1.8 X10'3 (1.1-4.8); LYMPHOCYTES % (AUTO) 22.4 % (21-51); MEAN CORPUSCULAR HEMOGLOBIN 28.6 PG (27.0-31.0); MEAN CORPUSCULAR HGB CONC 32.9 g/dL (33.0-36.5); MEAN PLATELET VOLUME 9.1 FL (7.4-10.4); MONOCYTES # (AUTO) 0.9 X10'3 (0-0.9); MONOCYTES % (AUTO) 11.2 % (2-12); NEUTROPHILS # (AUTO) 4.9 X10'3 (1.8-7.7); NEUTROPHILS % (AUTO) 61.2 % (42-75); PLATELET COUNT 307 X10'3 (140-440); RED BLOOD COUNT 4.32 X10'6 (4.70-6.10); RED CELL DISTRIBUTION WIDTH 14.5 % (11.5-14.5)
[2021-10-26 03:07] LABS: ALBUMIN 1.3 G/DL (3.4-5.0); ANION GAP 8 (8-16); BLOOD UREA NITROGEN 42 MG/DL (7-18); BUN/CREATININE RATIO 17.5 (5.4-32.0); CALCIUM 8.1 MG/DL (8.5-10.1); CHLORIDE 109 MMOL/L (99-107); GLUCOSE 287 MG/DL (70-104); PHOSPHORUS 4.2 MG/DL (2.3-4.5); POTASSIUM 4.1 MMOL/L (3.5-5.1); SODIUM 141 MMOL/L (135-145); TOTAL CARBON DIOXIDE 24.2 MMOL/L (24-32); eGFR 30 ML/MIN
[2021-10-26] MEDS: K and/or MAG REPLACEMENT MC SCH ×2 (08:00→18:36)
[2021-10-26] MEDS: levetiracetam inj 750 MG in normal saline 100ml IV soln 100 ML IV SCH ×2 (08:50→20:21)
[2021-10-26] MEDS: heparin, porcine 5000 units/ml vial SQ SCH ×2 (08:50→20:20)
[2021-10-26] MEDS: pantoprazole 40MG/NS 100ML BAG 100 ML IV SCH (08:50)
[2021-10-26] MEDS: folic acid 1mg tablet OGT SCH (08:51)
[2021-10-26] MEDS: amLODIPine 5mg tablet OGT SCH (08:51)
[2021-10-26] MEDS: venlafaxine XR 75mg capsule (Q24H) PO SCH (08:52)
[2021-10-26] MEDS: olanzapine 10mg tablet PO SCH (08:52)
[2021-10-26] MEDS: insulin Lispro (HumaLOG) vial - multi-dose SQ SCH ×3 (09:01→18:56)
[2021-10-26] MEDS: insulin glargine (Lantus) pen - multi-dose SQ SCH ×2 (09:02→20:28)
[2021-10-26] MEDS: dexmedetomidine inj. 400 MCG in normal saline 100ml IV soln 96 ML IV SCH ×2 (09:40→20:29)
[2021-10-26] MEDS: acetaminophen 325mg/10.15ml oral unit dose solution OGT PRN (13:19)
--- NOTE | 2021-10-26 18:30 | NUR ---
Patient in room CICU 2013. I have received report from VENKAT Melgar and had the opportunity to ask questions and assume patient care.
[2021-10-27] VITALS (24 sets, daily range): BP systolic 113–180; BP diastolic 33–103
[2021-10-27] MEDS: piperacillin/tazobactam inj. 3.375 GM in NS 50ml IV SCH ×2 (00:20→09:47)
[2021-10-27 03:29] LABS: BASOPHILS # (AUTO) 0.1 X10'3 (0-0.2); BASOPHILS % (AUTO) 1.3 % (0-1); EOSINOPHILS # (AUTO) 0.4 X10'3 (0-0.9); EOSINOPHILS % (AUTO) 4.4 % (0-6); HEMATOCRIT 38.4 % (42.0-52.0); HEMOGLOBIN 12.8 g/dl (14.0-17.9); LYMPHOCYTES # (AUTO) 1.8 X10'3 (1.1-4.8); LYMPHOCYTES % (AUTO) 19.3 % (21-51); MEAN CORPUSCULAR HEMOGLOBIN 28.6 PG (27.0-31.0); MEAN CORPUSCULAR HGB CONC 33.5 g/dL (33.0-36.5); MEAN CORPUSCULAR VOLUME 85.6 FL (78-98); MEAN PLATELET VOLUME 8.7 FL (7.4-10.4); MONOCYTES # (AUTO) 0.8 X10'3 (0-0.9); MONOCYTES % (AUTO) 8.7 % (2-12); NEUTROPHILS # (AUTO) 6.1 X10'3 (1.8-7.7); NEUTROPHILS % (AUTO) 66.3 % (42-75); PLATELET COUNT 331 X10'3 (140-440); RED BLOOD COUNT 4.48 X10'6 (4.70-6.10); RED CELL DISTRIBUTION WIDTH 14.2 % (11.5-14.5); WHITE BLOOD COUNT 9.2 X10'3 (4.5-11.0)
[2021-10-27 03:42] LABS: APTT 27 SECONDS (22-32)
[2021-10-27 03:43] LABS: ALBUMIN 1.5 G/DL (3.4-5.0); ANION GAP 9 (8-16); BLOOD UREA NITROGEN 35 MG/DL (7-18); CHLORIDE 109 MMOL/L (99-107); CREATININE 2.06 MG/DL (0.60-1.10); GLUCOSE 136 MG/DL (70-104); PHOSPHORUS 2.9 MG/DL (2.3-4.5); POTASSIUM 3.2 MMOL/L (3.5-5.1); SODIUM 140 MMOL/L (135-145); TOTAL CARBON DIOXIDE 22.2 MMOL/L (24-32); eGFR 36 ML/MIN
[2021-10-27] MEDS: POTASSIUM BICARB 20meq eff tab 20 MEQ TABLET.EFF OGT PRN ×3 (05:15→22:17)
--- NOTE | 2021-10-27 06:18 | NUR ---
Problems reprioritized. Patient report given, questions answered & plan of care reviewed with VENKAT Smith.
[2021-10-27] MEDS: K and/or MAG REPLACEMENT MC SCH ×2 (08:00→20:00)
[2021-10-27] MEDS: pantoprazole 40MG/NS 100ML BAG 100 ML IV SCH (09:47)
[2021-10-27] MEDS: levetiracetam inj 750 MG in normal saline 100ml IV soln 100 ML IV SCH ×2 (09:47→20:28)
[2021-10-27] MEDS: olanzapine 10mg tablet PO SCH (09:51)
[2021-10-27] MEDS: folic acid 1mg tablet OGT SCH (09:51)
[2021-10-27] MEDS: amLODIPine 5mg tablet OGT SCH (09:52)
[2021-10-27] MEDS: heparin, porcine 5000 units/ml vial SQ SCH ×2 (09:57→20:29)
[2021-10-27] MEDS: insulin glargine (Lantus) pen - multi-dose SQ SCH ×2 (10:01→20:00)
[2021-10-27] MEDS: insulin Lispro (HumaLOG) vial - multi-dose SQ SCH ×3 (10:01→19:03)
[2021-10-27] MEDS: venlafaxine XR 75mg capsule (Q24H) PO SCH (10:06)
--- NOTE | 2021-10-27 10:43 | NUR ---
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 Addendum: 10/27/21 at [address] Amended: Links added. Addendum: 10/27/21 at [address] CORRECTION* F/u 10/27: Pt extubated 10/24 on carb controlled diet. 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 Per RN; pt needs adaptive wear w/ meals. Dietary notified to chop meats and send adaptive wear/caution tray at meals. Recommendations: 1. continue carb controlled diet; caution tray w/ chopped meats/adaptive wear for ease of PO 2. Routine bowel care 3. weekly wts 4. DM ed deferred; A1C 11.1% though 1799 hold w/ SI per critical care team
--- NOTE | 2021-10-27 10:47 | NUR ---
F/u 10/27: Pt extubated 10/24 on carb controlled diet. 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 Per RN; pt needs adaptive wear w/ meals. Dietary notified to chop meats and send adaptive wear/caution tray at meals. Recommendations: 1. continue carb controlled diet; caution tray w/ chopped meats/adaptive wear for ease of PO 2. Routine bowel care 3. weekly wts 4. DM ed deferred; A1C 11.1% though 1798 hold w/ SI per critical care team Addendum: 10/27/21 at [address] Amended: Links added.
[2021-10-27] MEDS: acetaminophen 325mg/10.15ml oral unit dose solution OGT PRN (12:26)
--- NOTE | 2021-10-27 21:18 | NUR ---
spoke with Dr. Hdez on phone. reviewed blood sugar results since 1699. Orders noted to hold Lantus for robert
--- NOTE | 2021-10-27 22:10 | NUR ---
BP 172/100. No prns noted. Call in to Dr. Hdez with orders noted for labetalol 10 mg IVP x 1.
[2021-10-27] MEDS ORDERED: labetalol 20mg/4ml (5mg/ml) syringe IV ONE ×2 (22:14→22:15)
[2021-10-28] VITALS (24 sets, daily range): BP systolic 115–186; BP diastolic 57–105
[2021-10-28] MEDS: acetaminophen 325mg/10.15ml oral unit dose solution OGT PRN (00:47)
[2021-10-28] MEDS ORDERED: metoprolol tartrate 1mg/ml inj IV ONE (05:00)
[2021-10-28 05:12] LABS: BASOPHILS # (AUTO) 0.1 X10'3 (0-0.2); BASOPHILS % (AUTO) 0.9 % (0-1); EOSINOPHILS # (AUTO) 0.4 X10'3 (0-0.9); EOSINOPHILS % (AUTO) 3.7 % (0-6); HEMATOCRIT 38.6 % (42.0-52.0); HEMOGLOBIN 12.7 g/dl (14.0-17.9); LYMPHOCYTES # (AUTO) 2.3 X10'3 (1.1-4.8); LYMPHOCYTES % (AUTO) 22.2 % (21-51); MEAN CORPUSCULAR HEMOGLOBIN 28.3 PG (27.0-31.0); MEAN CORPUSCULAR HGB CONC 32.9 g/dL (33.0-36.5); MEAN CORPUSCULAR VOLUME 85.9 FL (78-98); MEAN PLATELET VOLUME 8.4 FL (7.4-10.4); MONOCYTES # (AUTO) 0.9 X10'3 (0-0.9); MONOCYTES % (AUTO) 8.9 % (2-12); NEUTROPHILS # (AUTO) 6.6 X10'3 (1.8-7.7); NEUTROPHILS % (AUTO) 64.3 % (42-75); PLATELET COUNT 314 X10'3 (140-440); RED CELL DISTRIBUTION WIDTH 14.3 % (11.5-14.5); WHITE BLOOD COUNT 10.3 X10'3 (4.5-11.0)
[2021-10-28 05:25] LABS: APTT 23 SECONDS (22-32)
[2021-10-28 05:28] LABS: ALBUMIN 1.6 G/DL (3.4-5.0); ANION GAP 10 (8-16); BLOOD UREA NITROGEN 23 MG/DL (7-18); BUN/CREATININE RATIO 13.2 (5.4-32.0); CALCIUM 8.5 MG/DL (8.5-10.1); CHLORIDE 108 MMOL/L (99-107); CREATININE 1.74 MG/DL (0.60-1.10); GLUCOSE 178 MG/DL (70-104); MAGNESIUM 1.9 MG/DL (1.5-2.4); PHOSPHORUS 3.1 MG/DL (2.3-4.5); SODIUM 140 MMOL/L (135-145); TOTAL CARBON DIOXIDE 22.1 MMOL/L (24-32); eGFR 44 ML/MIN
[2021-10-28 05:32] LABS: POTASSIUM 3.7 MMOL/L (3.5-5.1)
[2021-10-28] MEDS: ondansetron/PF 4mg/2ml inj IV PRN (06:55)
[2021-10-28] MEDS: levetiracetam inj 750 MG in normal saline 100ml IV soln 100 ML IV SCH ×2 (07:22→20:01)
[2021-10-28] MEDS: olanzapine 10mg tablet PO SCH (07:47)
[2021-10-28] MEDS: amLODIPine 5mg tablet OGT SCH (07:48)
[2021-10-28] MEDS: folic acid 1mg tablet OGT SCH (07:48)
[2021-10-28] MEDS: metoprolol tartrate 25mg tablet PO SCH ×2 (07:48→20:01)
[2021-10-28] MEDS: venlafaxine XR 75mg capsule (Q24H) PO SCH (07:48)
[2021-10-28] MEDS: insulin glargine (Lantus) pen - multi-dose SQ SCH ×2 (07:49→21:37)
[2021-10-28] MEDS: heparin, porcine 5000 units/ml vial SQ SCH ×2 (07:49→20:01)
[2021-10-28] MEDS: K and/or MAG REPLACEMENT MC SCH ×2 (08:00→20:00)
[2021-10-28] MEDS: pantoprazole 40MG/NS 100ML BAG 100 ML IV SCH (08:54)
[2021-10-28] MEDS: insulin Lispro (HumaLOG) vial - multi-dose SQ SCH ×2 (08:58→13:24)
--- NOTE | 2021-10-28 11:26 | NUR ---
F/u 10/28: Pt PO 75-100% most carb controlled meals w/ occasional fluctuation following extubation partially meeting estimated needs. Double eggs WB added for further protein/kcals since eating 100% breakfasts consistently; dietary notified. Pt Glu 222mg/dl up from 48mg/dl yesterday afternoon on glycemic protocol w/ Lantus BID per EMR. LBM 10/27. Will continue to monitor for further nutrition intervention needs. Recommendations: 1. continue carb controlled diet; caution tray w/ chopped meats/adaptive wear for ease of PO; double eggs WB 2. Routine bowel care 3. weekly wts 4. DM ed deferred; A1C 11.1% though 1799 hold w/ thoughts of self harm per EMR Addendum: 10/28/21 at [address] Amended: Links added.
--- NOTE | 2021-10-28 23:26 | NUR ---
Report called to Libertad ROBLEDO on 4th floor. Opportunity for questions provided, all questions answered. will transfer pt to 4005 via w/c with belongings.
--- NOTE | 2021-10-28 23:45 | NUR ---
Received report from VENKAT Mondragon and received pt in room, vitals taken, on contact iso, needs met.
[2021-10-29 06:02] LABS: BASOPHILS # (AUTO) 0.1 X10'3 (0-0.2); BASOPHILS % (AUTO) 1.2 % (0-1); EOSINOPHILS # (AUTO) 0.5 X10'3 (0-0.9); HEMATOCRIT 38.3 % (42.0-52.0); HEMOGLOBIN 12.5 g/dl (14.0-17.9); LYMPHOCYTES # (AUTO) 2.8 X10'3 (1.1-4.8); LYMPHOCYTES % (AUTO) 22.9 % (21-51); MEAN CORPUSCULAR HEMOGLOBIN 27.5 PG (27.0-31.0); MEAN CORPUSCULAR HGB CONC 32.6 g/dL (33.0-36.5); MEAN CORPUSCULAR VOLUME 84.3 FL (78-98); MEAN PLATELET VOLUME 8.7 FL (7.4-10.4); MONOCYTES % (AUTO) 8.5 % (2-12); NEUTROPHILS # (AUTO) 7.7 X10'3 (1.8-7.7); NEUTROPHILS % (AUTO) 63.4 % (42-75); PLATELET COUNT 348 X10'3 (140-440); RED BLOOD COUNT 4.55 X10'6 (4.70-6.10); RED CELL DISTRIBUTION WIDTH 14.3 % (11.5-14.5); WHITE BLOOD COUNT 12.2 X10'3 (4.5-11.0)
[2021-10-29 06:15] LABS: APTT 27 SECONDS (22-32)
[2021-10-29 06:25] LABS: ALBUMIN 1.6 G/DL (3.4-5.0); ANION GAP 8 (8-16); BLOOD UREA NITROGEN 22 MG/DL (7-18); BUN/CREATININE RATIO 12.3 (5.4-32.0); CALCIUM 8.2 MG/DL (8.5-10.1); CHLORIDE 110 MMOL/L (99-107); CREATININE 1.79 MG/DL (0.60-1.10); GLUCOSE 233 MG/DL (70-104); SODIUM 142 MMOL/L (135-145); TOTAL CARBON DIOXIDE 24.3 MMOL/L (24-32); eGFR 42 ML/MIN
--- NOTE | 2021-10-29 06:40 | NUR ---
Patient in room [facility] 4007. I have received report from nishi aviles and had the opportunity to ask questions and assume patient care.
[2021-10-29 07:19] VITALS: BP 145/72
[2021-10-29] MEDS: K and/or MAG REPLACEMENT MC SCH ×2 (07:41→19:34)
[2021-10-29] MEDS: levetiracetam inj 750 MG in normal saline 100ml IV soln 100 ML IV SCH (07:45)
[2021-10-29] MEDS: olanzapine 10mg tablet PO SCH (07:45)
[2021-10-29] MEDS: folic acid 1mg tablet OGT SCH (07:45)
[2021-10-29] MEDS: metoprolol tartrate 25mg tablet PO SCH ×2 (07:45→19:47)
[2021-10-29] MEDS: venlafaxine XR 75mg capsule (Q24H) PO SCH (07:45)
[2021-10-29] MEDS: amLODIPine 5mg tablet OGT SCH (07:46)
[2021-10-29] MEDS: heparin, porcine 5000 units/ml vial SQ SCH ×2 (07:46→19:46)
[2021-10-29] MEDS: insulin glargine (Lantus) pen - multi-dose SQ SCH ×2 (07:50→19:45)
[2021-10-29] MEDS: pantoprazole 40MG/NS 100ML BAG 100 ML IV SCH (09:23)
[2021-10-29] MEDS: insulin Lispro (HumaLOG) vial - multi-dose SQ SCH (09:36)
--- NOTE | 2021-10-29 09:37 | NUR ---
Met with patient in regards to substance use and to see if patient was interested in treatment options. Patient would like to go to inpatient rehab. I gave patient [facility] number to call and get process started. Patient is pretty sleepy so I will assist him later today to call.
--- NOTE | 2021-10-29 11:22 | NUR ---
PER DR BOLDEN, PT IS NO LONGER A 1799 HOLD AND DOES NOT REQUIRE A SITTER. OK TO DC ORDERS.
[2021-10-29 12:54] VITALS: BP 133/77
[2021-10-29 14:33] VITALS: BP 138/76
--- NOTE | 2021-10-29 17:54 | NUR ---
DC PICC FROM R UPPER ARM PER ORDER, PT TOLERATED WELL
[2021-10-29 18:00] VITALS: BP 156/84
--- NOTE | 2021-10-29 18:34 | NUR ---
Problems reprioritized. Patient report given, questions answered & plan of care reviewed with JACQUE ROBLEDO. Addendum: 10/29/21 at 1834 by Rebeca Marie RN Amended: Links added.
[2021-10-29] MEDS: levetiracetam 250mg tablet PO SCH (19:47)
--- NOTE | 2021-10-29 21:52 | NUR ---
2100 glu of 216-pt refused the 1u of short acting insulin. Did receive the 20u of scheduled long acting insulin tonight.
[2021-10-29 22:00] VITALS: BP 168/81
[2021-10-30 06:26] LABS: EOSINOPHILS # (AUTO) 0.4 X10'3 (0-0.9); HEMOGLOBIN 12.8 g/dl (14.0-17.9); MONOCYTES # (AUTO) 0.8 X10'3 (0-0.9)
[2021-10-30 06:27] LABS: BASOPHILS % (AUTO) 0.4 % (0-1); EOSINOPHILS % (AUTO) 3.4 % (0-6); HEMATOCRIT 38.4 % (42.0-52.0); LYMPHOCYTES # (AUTO) 2.4 X10'3 (1.1-4.8); LYMPHOCYTES % (AUTO) 22.2 % (21-51); MEAN CORPUSCULAR HEMOGLOBIN 28.7 PG (27.0-31.0); MEAN CORPUSCULAR HGB CONC 33.4 g/dL (33.0-36.5); MEAN CORPUSCULAR VOLUME 85.8 FL (78-98); MEAN PLATELET VOLUME 8.9 FL (7.4-10.4); MONOCYTES % (AUTO) 6.9 % (2-12); NEUTROPHILS # (AUTO) 7.4 X10'3 (1.8-7.7); NEUTROPHILS % (AUTO) 67.1 % (42-75); RED BLOOD COUNT 4.47 X10'6 (4.70-6.10); RED CELL DISTRIBUTION WIDTH 14.3 % (11.5-14.5)
[2021-10-30 06:28] LABS: APTT 22 SECONDS (22-32)
[2021-10-30 06:30] VITALS: BP 170/86
--- NOTE | 2021-10-30 06:30 | NUR ---
Patient in room [facility] 4007. I have received report from nishi aviles and had the opportunity to ask questions and assume patient care.
[2021-10-30 06:46] LABS: ALBUMIN 1.7 G/DL (3.4-5.0); ANION GAP 4 (8-16); BLOOD UREA NITROGEN 20 MG/DL (7-18); BUN/CREATININE RATIO 12.4 (5.4-32.0); CALCIUM 8.5 MG/DL (8.5-10.1); CHLORIDE 109 MMOL/L (99-107); CREATININE 1.61 MG/DL (0.60-1.10); GLUCOSE 137 MG/DL (70-104); MAGNESIUM 1.9 MG/DL (1.5-2.4); PHOSPHORUS 3.3 MG/DL (2.3-4.5); POTASSIUM 3.7 MMOL/L (3.5-5.1); SODIUM 138 MMOL/L (135-145); eGFR 48 ML/MIN
[2021-10-30 07:10] LABS: PLATELET COUNT 341 X10'3 (140-440)
[2021-10-30] MEDS: K and/or MAG REPLACEMENT MC SCH ×2 (07:46→20:00)
[2021-10-30] MEDS: olanzapine 10mg tablet PO SCH (07:48)
[2021-10-30] MEDS: pantoprazole 40MG/NS 100ML BAG 100 ML IV SCH (07:48)
[2021-10-30] MEDS: folic acid 1mg tablet OGT SCH (07:48)
[2021-10-30] MEDS: levetiracetam 250mg tablet PO SCH ×2 (07:48→19:31)
[2021-10-30] MEDS: venlafaxine XR 75mg capsule (Q24H) PO SCH (07:48)
[2021-10-30] MEDS: amLODIPine 5mg tablet OGT SCH (07:49)
[2021-10-30] MEDS: metoprolol tartrate 25mg tablet PO SCH ×2 (07:49→19:30)
[2021-10-30] MEDS: heparin, porcine 5000 units/ml vial SQ SCH ×2 (07:49→19:31)
[2021-10-30] MEDS: insulin glargine (Lantus) pen - multi-dose SQ SCH (08:00)
[2021-10-30 10:00] VITALS: BP 173/92
[2021-10-30] MEDS: linezolid 600mg tablet PO SCH ×2 (11:12→19:31)
[2021-10-30] MEDS: insulin Lispro (HumaLOG) vial - multi-dose SQ SCH ×2 (13:49→19:47)
[2021-10-30 15:28] VITALS: BP 164/83
[2021-10-30 17:00] VITALS: BP 172/93
[2021-10-30 17:15] VITALS: BP 173/92
--- NOTE | 2021-10-30 17:15 | NUR ---
PAGED DR BOLDEN TO NOTIFY BP 173/92. WAITING FOR CALL BACK
--- NOTE | 2021-10-30 17:33 | NUR ---
PAGED DR BOLDEN RE: Message: JOE CHANDLER. BP 173/93. DO YOU WANT PRN HYDRALAZINE? O/N BERTA [id number]
--- NOTE | 2021-10-30 18:26 | NUR ---
Patient in room [facility]TH[facility] 4007. I have received report from VENKAT James and had the opportunity to ask questions and assume patient care.
--- NOTE | 2021-10-30 18:37 | NUR ---
Problems reprioritized. Patient report given, questions answered & plan of care reviewed with farrah aviles.
[2021-10-30 22:00] VITALS: BP 156/99
[2021-10-31 06:00] VITALS: BP 161/87
--- NOTE | 2021-10-31 06:30 | NUR ---
Problems reprioritized. Patient report given, questions answered & plan of care reviewed with VENKAT Mares.
[2021-10-31] MEDS: acetaminophen 325mg/10.15ml oral unit dose solution OGT PRN (07:28)
[2021-10-31] MEDS ORDERED: pantoprazole 40mg Tablet.DR PO SCH (07:30)
[2021-10-31 07:42] LABS: BASOPHILS # (AUTO) 0.1 X10'3 (0-0.2); EOSINOPHILS # (AUTO) 0.3 X10'3 (0-0.9); EOSINOPHILS % (AUTO) 3.1 % (0-6); HEMOGLOBIN 13.1 g/dl (14.0-17.9); LYMPHOCYTES # (AUTO) 2.3 X10'3 (1.1-4.8); LYMPHOCYTES % (AUTO) 23.1 % (21-51); MEAN CORPUSCULAR HEMOGLOBIN 28.9 PG (27.0-31.0); MEAN CORPUSCULAR HGB CONC 33.5 g/dL (33.0-36.5); MEAN CORPUSCULAR VOLUME 86.2 FL (78-98); MEAN PLATELET VOLUME 8.7 FL (7.4-10.4); MONOCYTES # (AUTO) 0.7 X10'3 (0-0.9); MONOCYTES % (AUTO) 7.2 % (2-12); NEUTROPHILS # (AUTO) 6.5 X10'3 (1.8-7.7); NEUTROPHILS % (AUTO) 65.6 % (42-75); PLATELET COUNT 395 X10'3 (140-440); RED BLOOD COUNT 4.52 X10'6 (4.70-6.10); RED CELL DISTRIBUTION WIDTH 14.2 % (11.5-14.5); WHITE BLOOD COUNT 9.9 X10'3 (4.5-11.0)
[2021-10-31 07:48] LABS: APTT 29 SECONDS (22-32)
[2021-10-31 07:57] LABS: ALBUMIN 1.7 G/DL (3.4-5.0); ANION GAP 10 (8-16); BLOOD UREA NITROGEN 20 MG/DL (7-18); BUN/CREATININE RATIO 11.7 (5.4-32.0); CALCIUM 8.4 MG/DL (8.5-10.1); CHLORIDE 105 MMOL/L (99-107); CREATININE 1.71 MG/DL (0.60-1.10); GLUCOSE 315 MG/DL (70-104); MAGNESIUM 1.8 MG/DL (1.5-2.4); PHOSPHORUS 3.9 MG/DL (2.3-4.5); POTASSIUM 4.3 MMOL/L (3.5-5.1); SODIUM 140 MMOL/L (135-145); TOTAL CARBON DIOXIDE 25.5 MMOL/L (24-32); eGFR 45 ML/MIN
[2021-10-31] MEDS: K and/or MAG REPLACEMENT MC SCH (08:00)
[2021-10-31] MEDS ORDERED: PANT40TA54 PO (08:24)
[2021-10-31] MEDS ORDERED: LINE600T14 PO (08:24)
[2021-10-31] MEDS ORDERED: LOP25T PO (08:24)
[2021-10-31] MEDS ORDERED: THIA50TA10 PO (08:24)
[2021-10-31] MEDS ORDERED: CYAN500T71 PO (08:24)
[2021-10-31] MEDS ORDERED: LEVE250T PO (08:24)
[2021-10-31] MEDS: insulin Lispro (HumaLOG) vial - multi-dose SQ SCH ×2 (08:56→13:25)
[2021-10-31] MEDS: linezolid 600mg tablet PO SCH (08:57)
[2021-10-31] MEDS: levetiracetam 250mg tablet PO SCH (08:59)
[2021-10-31] MEDS: metoprolol tartrate 25mg tablet PO SCH (08:59)
[2021-10-31] MEDS: olanzapine 10mg tablet PO SCH (08:59)
[2021-10-31] MEDS: amLODIPine 5mg tablet OGT SCH (08:59)
[2021-10-31] MEDS: heparin, porcine 5000 units/ml vial SQ SCH (09:00)
[2021-10-31] MEDS: folic acid 1mg tablet OGT SCH (09:00)
[2021-10-31 10:00] VITALS: BP 151/77
[2021-10-31 14:00] VITALS: BP 142/88
--- NOTE | 2021-10-31 14:10 | NUR ---
Called pt's aunt Janene who said she is willing to pick pt up after 5pm when she gets off work and [facility] as she can't take pt back to her house due to caring for her with kindey problems.
--- NOTE | 2021-10-31 16:07 | NUR ---
Zyvox Consult: Pt started on zyvox per EMR. Pt not suicidal per MD note; RD d/w RN who support pt not suicidal no thoughts of self harm. Pt seen by RD for written/verbal DM/low-tyramine diet eds w/ RD contact information provided. Pt reports has family picking up insulin for him so he'll have supply. RD encouraged pt to contact dietitian's office if further questions/concerns. Addendum: 10/31/21 at [address] Amended: Links added.
== END 2021-10-31 18:25 | disposition home or self-care (01) | DRG 130 ==
LOC: ER 07:05 → ED HOLD 09:33 → EDBEDREQ 10:54 → CICU 2S 12:34 → ORTHO 4S 10-29 00:17
PROVIDERS: ADMIT Surgery; ATTEND Surgery
PROC: 5A1955Z Respiratory Ventilation, Greater than 96 Consecutive Hours (ICD-10-PCS; principal; 2021-10-19)
PROC: 0BH17EZ Insertion of Endotracheal Airway into Trachea, Via Natural or Artificial Opening (ICD-10-PCS; 2021-10-19)
PROC: 0D9670Z Drainage of Stomach with Drainage Device, Via Natural or Artificial Opening (ICD-10-PCS; 2021-10-19)
PROC: 02HV33Z Insertion of Infusion Device into Superior Vena Cava, Percutaneous Approach (ICD-10-PCS; 2021-10-19)
PROC: B548ZZA Ultrasonography of Superior Vena Cava, Guidance (ICD-10-PCS; 2021-10-19)
PROC: 4A10X4Z Monitoring of Central Nervous Electrical Activity, External Approach (ICD-10-PCS; 2021-10-21)
PROC: 02HV33Z Insertion of Infusion Device into Superior Vena Cava, Percutaneous Approach (ICD-10-PCS; 2021-10-22)
PROC: B548ZZA Ultrasonography of Superior Vena Cava, Guidance (ICD-10-PCS; 2021-10-22)
DX: J96.00 Acute respiratory failure, unspecified whether with hypoxia or hypercapnia (principal); J69.0 Pneumonitis due to inhalation of food and vomit; E10.10 Type 1 diabetes mellitus with ketoacidosis without coma; J15.212 Pneumonia due to Methicillin resistant Staphylococcus aureus; E46 Unspecified protein-calorie malnutrition; G40.901 Epilepsy, unspecified, not intractable, with status epilepticus; N17.9 Acute kidney failure, unspecified; E10.22 Type 1 diabetes mellitus with diabetic chronic kidney disease; I46.9 Cardiac arrest, cause unspecified; D63.8 Anemia in other chronic diseases classified elsewhere; Z20.822 Contact with and (suspected) exposure to COVID-19; F15.10 Other stimulant abuse, uncomplicated; N18.9 Chronic kidney disease, unspecified; R47.1 Dysarthria and anarthria; F17.210 Nicotine dependence, cigarettes, uncomplicated; F32.A Depression, unspecified; I12.9 Hypertensive chronic kidney disease with stage 1 through stage 4 chronic kidney disease, or unspecified chronic kidney disease; Z79.4 Long term (current) use of insulin; Z79.899 Other long term (current) drug therapy; Z81.8 Family history of other mental and behavioral disorders; Z68.26 Body mass index [BMI] 26.0-26.9, adult; Z59.02 Unsheltered homelessness; Z71.6 Tobacco abuse counseling; Z71.51 Drug abuse counseling and surveillance of drug abuser
CPT/HCPCS: 36415; 36600; 70450; 71045; 80048; 80053; 80164; 80305; 80320; 81001; 82140; 82550; 82803; 82948; 83036; 83605; 83735; 83930; 84100; 84134; 84145; 84478; 84484; 85018; 85025; 85610; 85730; 87040; 87070; 87077; 87081; 87186; 87324; 87449; 87635; 92508; 92616; 93005; 94002; 94003; 94760; 94799; 95816; 96361; 96365; 96366; 97110; 97116; 97161; 97530; 99291; 99292; C9113; G0378; J1644; J1815; J1940; J1953; J2060; J2270; J2405; J2543; J2704; J3480; J3490; J7030; J7042; J7120

== ENCOUNTER 2021-11-01 03:15 | Inpatient (IN) | payer MEDICAID ==
[~2021-11-01] VITALS: Ht 180.3 cm; Wt 88.2 kg
[~2021-11-01 03:15] MED LIST changes: +AMLO10TA13 PO; +CYAN500T71 PO; +FOLI1TAB27 PO; +LANTUS SQ; +LEVE250T PO; +LINE600T14 PO; +LOP25T PO; -NPH,100V SQ; +PANT40TA54 PO; +THIA50TA10 PO
[2021-11-01 04:03] LABS: BASOPHILS # (AUTO) 0.1 X10'3 (0-0.2); BASOPHILS % (AUTO) 0.9 % (0-1); EOSINOPHILS # (AUTO) 0.2 X10'3 (0-0.9); EOSINOPHILS % (AUTO) 1.6 % (0-6); HEMATOCRIT 42.1 % (42.0-52.0); HEMOGLOBIN 13.2 g/dl (14.0-17.9); LYMPHOCYTES % (AUTO) 16.2 % (21-51); MEAN CORPUSCULAR HEMOGLOBIN 27.8 PG (27.0-31.0); MEAN CORPUSCULAR HGB CONC 31.5 g/dL (33.0-36.5); MEAN CORPUSCULAR VOLUME 88.4 FL (78-98); MEAN PLATELET VOLUME 9.2 FL (7.4-10.4); MONOCYTES # (AUTO) 0.7 X10'3 (0-0.9); MONOCYTES % (AUTO) 5.9 % (2-12); NEUTROPHILS # (AUTO) 9.4 X10'3 (1.8-7.7); NEUTROPHILS % (AUTO) 75.4 % (42-75); PLATELET COUNT 405 X10'3 (140-440); RED BLOOD COUNT 4.76 X10'6 (4.70-6.10); RED CELL DISTRIBUTION WIDTH 14.5 % (11.5-14.5); WHITE BLOOD COUNT 12.5 X10'3 (4.5-11.0)
[2021-11-01 04:17] LABS: ALANINE AMINOTRANSFERASE 29 U/L (12-78); ALBUMIN/GLOBULIN RATIO 0.4 (1.1-1.5); ALKALINE PHOSPHATASE 141 IU/L (46-116); ANION GAP 15 (8-16); BILIRUBIN,TOTAL 0.4 MG/DL (0.1-1.0); BLOOD UREA NITROGEN 38 MG/DL (7-18); CALCIUM 8.9 MG/DL (8.5-10.1); CHLORIDE 96 MMOL/L (99-107); CREATININE 2.24 MG/DL (0.60-1.10); LIPASE 60 U/L (73-393); SODIUM 130 MMOL/L (135-145); TOTAL CARBON DIOXIDE 18.8 MMOL/L (24-32); TOTAL PROTEIN 6.8 G/DL (6.4-8.2); eGFR 33 ML/MIN
[2021-11-01 04:26] LABS: GLUCOSE 684 MG/DL (70-104); POTASSIUM 5.7 MMOL/L (3.5-5.1)
[2021-11-01 04:27] LABS: ASPARTATE AMINO TRANSFERASE 27 U/L (10-37)
[2021-11-01] MEDS ORDERED: normal saline 1000ml 1,000 ML IV ONE ×3 (04:35→06:10)
[2021-11-01] MEDS ORDERED: insulin regular, human 10 units/0.1 ml syringe IV ONE ×2 (04:35→07:25)
[2021-11-01 04:50] LABS: CLARITY,URINE CLEAR (Clear); GLUCOSE, URINE >=1000 mg/dl (Neg); KETONES,URINE 40 mg/dl (Neg); LEUKOCYTE ESTERASE ,URINE NEGATIVE (Neg); NITRITES, URINE NEGATIVE (Neg); OCCULT BLOOD,URINE TRACE-INTACT (Neg); PROTEIN,URINE 100 mg/dl (Neg); UROBILINOGEN,URINE 0.2 E.U/dL (0.2-1.0)
[2021-11-01 04:53] LABS: UA COLLECTION TYPE URINAL
[2021-11-01 04:54] LABS: COLOR,URINE STRAW (Yellow)
[2021-11-01 04:58] LABS: BACTERIA,URINE NONE SEEN /HPF (Neg); RBC,URINE 0-2 /HPF (0-2); WBC,URINE 0-4 /HPF (0-4)
[2021-11-01 04:59] LABS: MUCUS STRANDS NONE SEEN /LPF (Neg); SQUAMOUS EPITHELIAL CELL,UR FEW /LPF (FEW)
--- NOTE | 2021-11-01 05:23 | NUR ---
RT paged for ABG's
[2021-11-01] MEDS ORDERED: morphine 4 MG/ML inj SYRINge IV ONE (07:25)
[2021-11-01] MEDS ORDERED: DEXTROSE 15 GM of carb/4 tabs (each vial/BOTTLE has 4 tablets) PO PRN ×2 (08:10)
[2021-11-01] MEDS ORDERED: MESSAGE TO PHARMACY PO ONE (08:10)
[2021-11-01] MEDS ORDERED: acetaminophen 325mg tablet PO PRN ×2 (08:10)
[2021-11-01] MEDS ORDERED: morphine 2 MG/ML inj. syringe IV PRN (08:10)
[2021-11-01] MEDS ORDERED: glucagon, human recombinant 1mg kit SUBCUT PRN (08:10)
[2021-11-01] MEDS ORDERED: metoclopramide 5 mg/ml inj IV PRN (08:10)
[2021-11-01] MEDS ORDERED: HYDROcodone/acetaminophen 5mg/325mg tablet PO PRN (08:10)
[2021-11-01] MEDS ORDERED: dextrose 50%-water 50ml dispensing syringe IV PRN ×2 (08:10)
[2021-11-01] MEDS ORDERED: HYDROcodone/acetaminophen 10/325mg tab PO PRN (08:10)
[2021-11-01] MEDS ORDERED: ondansetron/PF 4mg/2ml inj IV PRN (08:10)
[2021-11-01] MEDS ORDERED: magnesium hydroxide 30ml (MOM) UD suspension PO PRN (08:10)
[2021-11-01] MEDS ORDERED: mag hydrox/Alum hydrox/simeth 30ml oral suspension PO PRN (08:10)
[2021-11-01] MEDS: normal saline 1000ml 1,000 ML IV SCH ×2 (08:47→21:36)
[2021-11-01 13:40] VITALS: BP 167/99
[2021-11-01] MEDS: insulin Lispro (HumaLOG) vial - multi-dose SQ SCH ×4 (13:40→21:32)
[2021-11-01] MEDS: morphine 2 MG/ML inj. syringe IV PRN (14:28)
[2021-11-01 18:00] VITALS: BP 148/76
--- NOTE | 2021-11-01 18:30 | NUR ---
Received report from Vishnu ROBLEDO
[2021-11-01] MEDS: thiamine 100mg tablet PO SCH (19:49)
[2021-11-01] MEDS: docusate sod 100mg capsule PO SCH (19:49)
[2021-11-01] MEDS: linezolid 600mg tablet PO SCH (19:49)
[2021-11-01] MEDS: levetiracetam 250mg tablet PO SCH (19:49)
[2021-11-01] MEDS: metoprolol tartrate 25mg tablet PO SCH (19:49)
[2021-11-01 20:25] LABS: HEMOGLOBIN A1C 10.7 % (4.5-6.2)
[2021-11-01] MEDS ORDERED: insulin glargine (Lantus) pen - multi-dose SQ SCH (21:00)
[2021-11-01 22:00] VITALS: BP 139/86
[2021-11-01] MEDS ORDERED: guaiFENesin/codeine phos 10ml UD oral syrup PO PRN (23:50)
[2021-11-02] MEDS: morphine 2 MG/ML inj. syringe IV PRN (01:30)
[2021-11-02] MEDS: normal saline 1000ml 1,000 ML IV SCH (04:10)
[2021-11-02 06:00] VITALS: BP 183/99
--- NOTE | 2021-11-02 06:20 | NUR ---
Problems reprioritized. Patient report given, questions answered & plan of care reviewed with Tracey ROBLEDO.
[2021-11-02 07:09] LABS: ALBUMIN 1.9 G/DL (3.4-5.0); ANION GAP 11 (8-16); BLOOD UREA NITROGEN 31 MG/DL (7-18); BUN/CREATININE RATIO 17.8 (5.4-32.0); CALCIUM 8.8 MG/DL (8.5-10.1); CHLORIDE 103 MMOL/L (99-107); CREATININE 1.74 MG/DL (0.60-1.10); GLUCOSE 308 MG/DL (70-104); POTASSIUM 4.4 MMOL/L (3.5-5.1); SODIUM 137 MMOL/L (135-145); TOTAL CARBON DIOXIDE 23.4 MMOL/L (24-32); eGFR 44 ML/MIN
[2021-11-02 07:22] LABS: BASOPHILS # (AUTO) 0.1 X10'3 (0-0.2); BASOPHILS % (AUTO) 0.8 % (0-1); EOSINOPHILS # (AUTO) 0.3 X10'3 (0-0.9); EOSINOPHILS % (AUTO) 2.5 % (0-6); HEMOGLOBIN 13.7 g/dl (14.0-17.9); LYMPHOCYTES # (AUTO) 2.4 X10'3 (1.1-4.8); LYMPHOCYTES % (AUTO) 20.8 % (21-51); MEAN CORPUSCULAR HEMOGLOBIN 28.8 PG (27.0-31.0); MEAN CORPUSCULAR HGB CONC 33.3 g/dL (33.0-36.5); MEAN CORPUSCULAR VOLUME 86.4 FL (78-98); MEAN PLATELET VOLUME 8.9 FL (7.4-10.4); MONOCYTES # (AUTO) 0.7 X10'3 (0-0.9); MONOCYTES % (AUTO) 5.6 % (2-12); NEUTROPHILS # (AUTO) 8.2 X10'3 (1.8-7.7); NEUTROPHILS % (AUTO) 70.3 % (42-75); PLATELET COUNT 436 X10'3 (140-440); RED BLOOD COUNT 4.74 X10'6 (4.70-6.10); RED CELL DISTRIBUTION WIDTH 14.2 % (11.5-14.5); WHITE BLOOD COUNT 11.7 X10'3 (4.5-11.0)
[2021-11-02] MEDS ORDERED: pantoprazole 40mg Tablet.DR PO SCH (07:30)
[2021-11-02] MEDS: thiamine 100mg tablet PO SCH (07:42)
[2021-11-02] MEDS: linezolid 600mg tablet PO SCH (07:43)
[2021-11-02] MEDS: metoprolol tartrate 25mg tablet PO SCH (07:44)
[2021-11-02] MEDS: docusate sod 100mg capsule PO SCH (07:45)
[2021-11-02] MEDS: levetiracetam 250mg tablet PO SCH (07:46)
[2021-11-02] MEDS: insulin Lispro (HumaLOG) vial - multi-dose SQ SCH ×2 (07:53→13:06)
[2021-11-02] MEDS ORDERED: amLODIPine 5mg tablet PO SCH (08:00)
[2021-11-02] MEDS ORDERED: cyanocobalamin 500mcg tablet PO SCH (08:00)
[2021-11-02 10:00] VITALS: BP 148/92
--- NOTE | 2021-11-02 10:42 | NUR ---
Diabetes consult: Noted pt w/ hx of DM A1c 10.7, recently here for DKA. Provided pt w/ written and verbal DM education w/ RD contact info. Pt thoroughly voiced his concerns regarding his medical and personal situation. Empathized w/ pt's difficulties and encouraged pt to share these same concerns w/ MD and social services manager, who have been consulted. Addendum: 11/02/21 at [address] Amended: Links added.
[2021-11-02] MEDS ORDERED: LANTUS SQ (15:14)
--- NOTE | 2021-11-02 15:20 | NUR ---
Patients blood sugar is up to 81, he refuses to stay longer to be monitored. Dr Pastor aware. Discharge papers signed. Patients Aunt Janene states she will [place] him off [place] he prefers to live and check his blood sugar before dropping him off. He was given snacks and sandwiches for discharge. Janene also picked up patients insulin and has needles to supply him with. Patient has prescribed humalog and lantus in hand. IV taken out, medications returned to patient from pharmacy. Tele dc'd and returned to tele box. All belongings taken from room. Patient upset and agitated about not being able to stay one more day but also trying to leave and very inpatient. Addendum: 11/02/21 at 1808 by Tracey Chicas RN RN wrong time, correct time was at discharge 1720
--- NOTE | 2021-11-02 16:17 | NUR ---
Patients blood sugar checked at discharge and it was 74. juice and yogurt given. rechecked at 62. pt was eating sandwich and given glucose tabs. Aunt went to get his insulin perscriptions from [employer] so we can monitor and once stable and remaining stable aunt says they will check him on their glucose monitor as well.
--- NOTE | 2021-11-02 18:08 | NUR ---
1520 timed note was meant for 1720 upon discharge.
== END 2021-11-02 17:15 | disposition home or self-care (01) | DRG 420 ==
LOC: ER 03:16 → ED HOLD 08:12 → EDBEDREQ 13:00 → ORTHO 4S 13:57
PROVIDERS: ADMIT Internal Medicine; ATTEND Internal Medicine
DX: E10.65 Type 1 diabetes mellitus with hyperglycemia (principal); E87.2 Acidosis; N17.9 Acute kidney failure, unspecified; J18.9 Pneumonia, unspecified organism; E87.5 Hyperkalemia; F15.90 Other stimulant use, unspecified, uncomplicated; G40.909 Epilepsy, unspecified, not intractable, without status epilepticus; Z59.00 Homelessness unspecified; Z79.4 Long term (current) use of insulin; Z79.899 Other long term (current) drug therapy; Z83.3 Family history of diabetes mellitus
CPT/HCPCS: 36415; 71045; 80048; 80053; 81001; 82800; 82948; 83036; 83605; 83690; 85025; 87081; 96365; 96375; 99285; G0378; J1815; J2270; J7030